=== PATIENT | male | born 1990 | race Caucasian/White ===

== ENCOUNTER 2020-02-16 20:02 | Emergency (ER) | payer OTHER ==
[~2020-02-16] VITALS: Ht 172.7 cm; Wt 110.2 kg
[2020-02-16 20:09] VITALS: BP 145/92; Ht 172.7 cm; Wt 110.2 kg
== END 2020-02-16 22:12 | disposition home or self-care (01) ==
LOC: ED 20:02
DX: R05 Cough (principal); R11.10 Vomiting, unspecified
CPT/HCPCS: J7512; Q0092